=== PATIENT | female | born 1995 ===

== ENCOUNTER 2025-07-23 09:52 | Outpatient (REF) | payer MEDICAID, SELFPAY ==
--- NOTE | ~2025-07-23 | US_ITS ---
EXAMINATION: US HEAD NECK SOFT TISSUE HISTORY: right side of neck, firm subcutaneous nodule, tender COMPARISON: There are no prior studies available for comparison. FINDINGS: Sonographic examination of a palpable abnormality in the right neck was performed. There is a 9 x 5 x 9 mm hypoechoic solid mass in the subcutaneous tissues. This does not represent a normal appearing lymph node. US/US soft tiss head and/or neck IMPRESSION: 9 x 5 x 9 mm hypoechoic solid mass in the subcutaneous soft tissues. This is likely amenable to ultrasound-guided biopsy. Electronically signed by: Jeff Barron MD 07/25/2025 08:47 AM EDT
--- OUTSIDE RECORDS SUMMARY | 2025-07-23 09:54 | XMS_ITS | Clinical Summary ---
Author Organization [employer] Address [address] [facility] [address] [place] [address] Care Team Providers Care Cat Wagon Operator Name Role Phone Kim Harp MD Primary Care Provider [phone] Allergies No known active allergies Medications * This document contains information received from the source organization and may not represent a complete record from that organization. Pyridoxine HCl 10 MG tabletIndicatio ns:Positive test Take 1 tablet (10 mg) by mouth every 6 (six) hours if needed (nausea). 90 tablet 1 4 Active Additional Information Patient not taking.Reported on 05/31/2025 Vit-Fe Ldg-EP-Lkpuo (PNV Plus Multivit+DHA) 27-1 & 312 MG misc Take 1 tablet by mouth Once per day. 90 each 3 5 Active acetaminophen 500 MG capsule Take 1 capsule (500 mg) by mouth every 6 (six) hours if needed for mild pain or headaches. 60 capsule 1 5 Active Additional Information Patient not taking.Reported on 05/31/2025 Active Problems Problem Noted Date Diagnosed Date Subcutaneous mass of neck 07/15/2025 Major depressive disorder, s hossein episode with peripartum onset 06/27/2025 RUPERTO (generalized anxiety disorder) 06/27/2025 PTSD (post-traumatic stress disorder) 06/27/2025 14 weeks gestation of 12/19/2024 Assessment & Plan (12/19/2024 8:02 PM EST): Reviewed warning signs to go to ER, bleeding or loss of fluid Take PNV daily Avoid teratogens Encounters * This document contains information received from the source organization and may not represent a complete record from that organization. Date Type Department Care Team Description 07/19/2025 Patient Outreach [address] [address] Kim Harp MD 07/15/2025 11:15 AM EDT Office Visit [address] [address] Amita Lei, STEVE Subcutaneous mass of neck (Primary Dx) 07/15/2025 Patient Outreach [address] [address] Kim Harp MD Care Coordination ([facility] Cyndi Brown TC#2- SDOH follow up call-LVM) 07/15/2025 Travel 07/13/[address] [address] Kim Harp MD Telephone Call 07/08/2025 Patient Outreach [address] [address] Kim Harp MD Care Management ([facility] follow up call) 07/08/2025 Patient Outreach [address] [address] Kim Harp MD 06/30/2025 Patient Outreach [address] [phone] Kim Harp MD Care Coordination ([facility] Cyndi Brown TC#1-Follow up-LVM) 06/27/2025 Travel 06/22/2025 Travel 06/22/2025 Patient Outreach [address] [phone] Kim Harp MD Care Management ([facility] TC #1-lvm) 06/20/2025 Patient Outreach [address] [phone] Kim Harp MD 06/20/2025 Patient Outreach [facility] [address] [place] [address] Kim Harp MD Transition Of Care (Tcm) (HDF usncheduled. ) 06/17/2025 Patient Outreach [address] [address] Kim Harp MD 06/16/2025 Patient Outreach [address] [address] Kim Harp MD Care Coordination ([facility]/ALAN Brown, In person Facility Visit-Car seat drop off) 06/15/2025 Patient Outreach [address] [address] Kim Harp MD Care Coordination ([facility]/ALAN Brown, TC-Facility call) 06/15/2025 Patient Outreach [address] [address] Kim Harp MD 06/13/2025 Patient Outreach [address] [address] Kim Harp MD Care Coordination ([facility]ALAN Brown TC- Car seat update/Follow up) 06/13/2025 Patient Outreach [address] [address] Kim Harp MD Care Management (C3 follow up call) 05/31/2025 Plan of Care Documentation [address] [address] 05/31/2025 Patient Outreach [address] [address] Kim Harp MD Care Management (C3 initial assessment/enrollment ) 05/30/2025 Patient Outreach [address] [address] Kim Harp MD Care Coordination ([facility]/ESTEFANY Macdonald-[place] Appt Reminder) 05/27/2025 Patient Outreach [address] [address] Kim Harp MD Care Coordination ([facility]/ALAN Brown TC- Rescheduled [place] appt) 05/18/2025 Patient Outreach [address] [address] Kim Harp MD Care Coordination ([facility]/ESTEFANY Macdonald-R/S HR Maternity [place] appt) 05/17/2025 3:20 PM EDT Office Visit [facility] [address] [place] [address] Iman Davis MD Acute streptococcal pharyngitis (Primary Dx); Nodule of skin of neck 05/17/2025 Travel 05/17/2025 Patient Outreach [facility] [address] [place] [address] Kim Harp MD Care Coordination ([facility]/ESTEFANY Macdonald-HRMaternity [place] Appt reminder) 05/16/2025 Patient Outreach [address] [address] Kim Harp MD Care Coordination ([facility]/ESTEFANY Macdonald#4- Attempt to R/S missed [place]-Agrees to participate) from Last 3 Months Social History Tobacco Use Types Packs/Day Years Used Date Smoking Tobacco: Never Smokeless Tobacco: Never Tobacco Cessation:Counseling Given: Not Answered Alcohol Use Standard Drinks/Week Comments Never 0 (1 standard drink = 0.6 oz pur e alcohol) Depression Answer Date Recorded Patient Health Questionnaire-9 Score 7 07/12/2025 Patient Health Questionnaire-9 Score 7 07/12/2025 Last PHQ-9: Questionnaire Data Not on file 0 07/12/2025 Housing Stability Answer Date Recorded What is your housing situation today? I do not have housing (Staying with others, in a hotel, in a long-term, living outside on the street, on a beach, in a car, or in a park 01/27/[address] you li ve. Do you have problems with any of the following? None of the above 01/27/2025 Food Insecurity Answer Date Recorded Within the past 12 months, y ou worried that your food would run out before you got money to buy more: Sometimes True 2024 Within the past 12 months,th e food you bought just didn't last and you didn't have enough money to get more: Sometimes True 01/27/2025 Transportation Answer Date Recorded In the past 12 months, has l ack of transportation kept you from medical appts, meetings, work or from getting things needed for daily living? Yes, it has kept me from medical appointments or getting medications. 01/27/2025 Utilities Answer Date Recorded In the past 12 months, has t he electric, gas, oil or water company threatened to shut off services in your home? No 01/27/2025 Depression Answer Date Recorded Patient Health Questionnaire-2 Score 2 07/12/2025 Internet Access Answer Date Recorded Internet Access Q1 Yes 01/27/2025 Internet Access Q2 Not on file 01/27/2025 Comments No Sex and Gender Information Value Date Recorded Sex Assigned at Female 11/08/2024 8:40 AM EST Legal Sex Female 11:42 AM EDT Gender Identity Female 11/08/2024 8:40 AM EST Sexual Orientation Choose not to disclose 2023 8:40 AM EST Last Filed Vital Signs Vital Sign Reading Time Taken Comments Blood Pressure 100/72 07/15/2025 10:47 AM EDT Pulse 72 07/15/2025 10:47 AM EDT Temperature 36.7 C (98.1 F) 07/15/2025 10:47 AM EDT Respiratory Rate 18 07/15/2025 10:47 AM EDT Oxygen Saturation 98% 07/15/2025 10:47 AM EDT Inhaled Oxygen Concentration - - Weight 61.5 kg (135 lb 8 oz) 07/15/2025 10:47 AM EDT Height 152.4 cm (5') 07/15/2025 10:47 AM EDT Body Mass Index 26.46 07/15/2025 10:47 AM EDT Plan of Treatment Health Maintenance Due Date Last Done Comments HIV Screening 1994 Disability Screening 1994 Family Planning (PISQ) 2009 HPV Vaccines (1 - 3-dose series) 2009 Hepatitis C Screening 2012 DTaP/Tdap/Td Vaccines (1 - Tdap) 2013 Hepatitis B Vaccines (1 of 3 - 19+ 3-dose series) 2013 Pap Smear 2015 Cervical Cancer Screening 2024 HPV/Cotest 2024 COVID-19 Vaccine ( - 2023-2 5 season) 2025 Influenza Vaccine (#1) 2025 Tobacco Screening 12/17/2025 12/17/2024 SDOH Screening 01/27/2026 01/27/2025 Alcohol/Substance Use Screening 05/31/2026 05/31/2025 Depression Screening 07/12/2026 07/12/2025, 07/12/2025 Zoster Vaccines (1 of 2) 2044 RSV Patients and Patients Aged 60 years or older (1 - 1-dose 75+ series) 2069 HIB Vaccines Aged Out No longer eligi ble based on patient's age to complete this topic Hepatitis A Vaccines Aged Out No long er eligible based on patient's age to complete this topic IPV Vaccines Aged Out No longer eligi ble based on patient's age to complete this topic Meningococcal B Vaccine Aged Out No l onger eligible based on patient's age to complete this topic Meningococcal Vaccine Aged Out No analilia kasandra eligible based on patient's age to complete this topic Pneumococcal Vaccine: Pediatrics (0 to 5 Years) and At-Risk Patients (6 to 49) Years Aged Out No longer eligible b ased on patient's age to complete this topic RSV under 20 months Aged Out No longe r eligible based on patient's age to complete this topic Rotavirus Vaccines Aged Out No longer eligible based on patient's age to complete this topic Procedures Procedure Name Priority Date/Time Associated Diagnosis Comments POCT RAPID STREP A Routine 05/17/2025 4: 21 PM EDT Acute streptococcal pharyngitis from Last 3 Months Results * (ABNORMAL) POCT rapid strep A manually resulted (05/17/2025 4:21 PM EDT) [facility] Rapid Strep A Screen Positive( A) Negative, None Detected Swab 05/17/2025 4:21 PM EDT Iman Davis MD POINT OF CARE TEST ENTER/EDIT ORDERABLES Final Result from Last 3 Months Insurance HSN FULL [facility] STANDARD Care Teams Cat Wagon Operator Relationship Specialty Start Date End Date Kim Harp MD [address] [place] [id number] PCP - General Family Medicine 12/17/24
--- OUTSIDE RECORDS SUMMARY | 2025-07-23 09:54 | XMS_ITS ---
Author Organization [employer] [facility] Address [address] [facility] 7t [place] [address] Care Team Providers Care Photographer Finish Name Role Phone Kim Harp MD Primary Care Provider [phone] CM High Risk Maternity Status:Enrolled (Active) Start date:01/27/2025 Enrollment date:05/31/2025 Enrollment reason:Risk Strat Overview HRM- Risk Strat Case Team Name Relationship Phone Eda Edwards(Responsible Staff) Registered Nurse [phone] Continued Care and Services Coordination
--- OUTSIDE RECORDS SUMMARY | 2025-07-23 09:54 | XMS_ITS ---
Author Organization [employer] [facility] Address [address] [facility] 7[address] [place] [address] Care Team Providers Care University Internship Name Role Phone Kim Harp MD Primary Care Provider [phone] [phone] CM Maternal Advocate Status:Enrolled (Active) Start date:01/27/2025 Enrollment date:05/31/2025 Enrollment reason:Risk Strat Case Team Name Relationship Phone Cyndi Brown(Responsible Staff) [phone] Continued Care and Services Coordination
--- OUTSIDE RECORDS SUMMARY | 2025-07-23 09:55 | XMS_ITS | Encounter Summary ---
Author Organization [employer] Address [address] [place] [address] Care Team Providers Care Adult Protective Caseworker Name Role Phone Kim Harp MD Primary Care Provider [phone] Encounter Details Date Type Department Care Team ([facility] st Contact Info) Description 07/19/2025 Patient Outreach [facility] [address] [place] [address] Kim Harp MD [address] [place] [address] Social History Tobacco Use Types Packs/Day Years Used Date Smoking Tobacco: Never Smokeless Tobacco: Never Alcohol Use Standard Drinks/Week Comments Never 0 [...] with others, in a hotel, in a custodial, living outside on the street, on a [...] Access Q2 Not on file 01/27/2025 Comments Yes Sex and Gender Information Value Date Recorded Sex Assigned at Female 11/08/2024 8:40 AM EST Legal Sex Female 11:42 AM EDT Gender Identity Female 11/08/2024 8:40 AM EST Sexual Orientation Choose not to disclose 2023 8:40 AM EST documented as of this encounter Plan of Treatment Not on file documented as of this encounter Visit Diagnoses Not on filedocumented in this encounter Additional Health Concerns Assessment Noted Time PHQ-9 Depression Total Score: 7 07/12/20 1:32 PM EDT documented as of this encounter Care Teams Adult Protective Caseworker Relationship Specialty Start Date End Date Kim Harp MD [address] [place] [address] PCP - General Family Medicine 12/17/24 documented as of this encounter
== END 2025-07-23 09:53 | disposition home or self-care (01) ==
LOC: HO.US 09:52
PROVIDERS: PCP General Practice; Visit Provider Nurse Practitioner Family
DX: R22.1 Localized swelling, mass and lump, neck (principal)
CPT/HCPCS: 76536

== ENCOUNTER → 2025-07-23 09:56 | Outpatient (BNV) | payer MEDICAID, SELFPAY | PROVIDERS: PCP General Practice; Visit Provider Radiology Diagnostic Radiology | DX: R22.1 Localized swelling, mass and lump, neck (principal) | CPT/HCPCS: 76536 ==

== ENCOUNTER 2025-08-29 09:22 | Outpatient (AMB) | payer MEDICAID, SELFPAY ==
--- NOTE | 2025-08-29 09:28 | A.OFFVIS_ITS ---
Vital Signs 3 08/29/25 09:35 Height 4 ft 11 in Weight 135 lb BMI 27.3 BP 106/54 L Blood Pressure Location Lt brachial Position Sitting Pulse 80 Intake Visit Reasons: subcutaneous mass (R) lateral neck Intake Note: Patient is seen in office for evaluation of a mass of the right neck. Pt c/o: onset 6 months ago, was on abx few weeks ago due to infection and fever, denies discharge, admits to redness, pain, hard lump Staff Radiation Therapist Required: Yes Staff Radiation Therapist Language: Director Of Optimization Services: Staff Radiation Therapist Present Staff Radiation Therapist Name: Vika COOK Information Interpreted: non-clinical & clinical Business Center Representative: Business Center Representative Present Accompanied by: Self / Same As Patient Allergies No Known Allergies Allergy (Verified 08/29/25 09:35) Medication List - Last Reconciled 08/29/25 by Ramon Shah MD No Known Home Meds HPI Comments Details: 29-year-old female patient presenting with complaints of a right neck mass. The neck mass has been there for approximately 6 months in his gradually increased in size. She does report pain to the touch as well as fevers especially when not taking ibuprofen. She reports pain also within her mouth especially when eating which he feels may be associated with the neck mass. She is approximately 2 months . She denies any anorexia or weight loss but does report fever without chills. She denies a previous biopsy of this lesion. Ultrasound revealed a 9 x 5 x 9 mm hypoechoic solid mass in the subcutaneous tissue which did not appear to be a normal-appearing lymph node. Patient has requested excision of this lesion. [facility] Surgical History History of 3 sections Social History Alcohol intake: never Patient Tobacco Use Status: Never used Tobacco Review of Systems Const All systems reviewed & are unremarkable except as noted in HPI and below Physical Exam Const General: cooperative and no acute distress Nutritional Appearance: well nourished Orientation/consciousness: patient oriented x3 Limitations: no limitations HEENT Head: Yes normocephalic and Yes atraumatic Ears: hearing grossly normal bilaterally Neck Neck images: 2 1. 1.5 cm round subcutaneous mass mobile within the subcutaneous tissue with no fixation to the skin. Lesion seems to superficial to be a lymph node but deeper then would be expected for a sebaceous cyst. Lesion is tender to palpation. No skin redness or fluctuance is identified. Resp Effort & Inspection: normal respiratory effort, no audible wheezes, no cough and no respiratory distress Cardio Jugular venous distension: no JVD GI Inspection: Yes normal to inspection Skin Other: Warm, dry, no rash Neuro General: patient oriented x3 Extrem General: Yes no clubbing, cyanosis or edema Assessment & Plan Assessment & Plan (1) Solitary mass of neck with fever: Code(s): R22.1 - Localized swelling, mass and lump, neck; R50.9 - Fever, unspecified Category: Medical Plan 29-year-old female patient presenting with a right-sided neck mass measuring approximately 1.5 cm in diameter. This has been present for approximately 6 months in his gradually increased in size and causing discomfort. The lump seems to be associated with fevers as well. I recommended an excision of this palpable mass under local anesthesia and after discussion of the procedure, risks, and alternatives, she consents to the surgery. This will be performed under local anesthesia as an office based procedure. She expressed understanding and agrees with the plan. Coding Level of Care Code New Pt Level 4 (38934) Diagnoses Solitary mass of neck with fever R22.1; R50.9
[2025-08-29 09:35] VITALS: BP 106/54; PULSE 80; BMI 27.3
--- OUTSIDE RECORDS SUMMARY | 2025-08-29 10:30 | XMS_ITS ---
Author Organization [employer] [facility] Address [address] [facility] [address] [place] [address] Care Team Providers Care Etymology Teacher Name Role Phone Kim Harp MD Primary Care Provider [phone] C3 CM Maternal Advocate Status:Enrolled (Active) Start date:01/27/2025 Enrollment date:05/31/2025 Enrollment reason:Risk Strat Case Team Name Relationship Phone Cyndi Brown(Responsible Staff) [phone] Continued Care and Services Coordination
--- OUTSIDE RECORDS SUMMARY | 2025-08-29 10:30 | XMS_ITS ---
Author Organization [employer] [facility] Address [address] [facility] [address] [place] [address] Care Team Providers Care Astrochemist Name Role Phone Kim Harp MD Primary Care Provider [phone] CM High Risk Maternity Status:Enrolled (Active) Start date:01/27/2025 Enrollment date:05/31/2025 Enrollment reason:Risk Strat Overview HRM- Risk Strat Case Team Name Relationship Phone Eda Edwards(Responsible Staff) Registered Nurse [phone] Continued Care and Services Coordination
--- OUTSIDE RECORDS SUMMARY | 2025-08-29 10:30 | XMS_ITS | Encounter Summary ---
Author Organization [employer] Address [address] [facility] [place] [address] Care Team Providers Care Director Talent Management Name Role Phone Kim Harp MD Primary Care Provider [phone] Encounter Details Date Type Department Care Team ([facility] st Contact Info) Description 08/25/2025 Patient Outreach [facility] [address] [place] [address] Kim Harp MD [address] [place] [address] Social History Tobacco Use Types Packs/Day Years Used Date Smoking Tobacco: Never Smokeless Tobacco: Never Alcohol Use Standard Drinks/Week Comments Never 0 (1 standard drink = 0.6 oz pur e alcohol) Depression Answer Date Recorded Patient Health Questionnaire-9 Score 9 07/25/2025 Patient Health Questionnaire-9 Score 9 07/25/2025 Last PHQ-9: Questionnaire Data Not on file 0 07/25/2025 Housing Stability Answer Date Recorded What is your housing situation today? I do not have housing (Staying with others, in a hotel, in a fci, living outside on the street, on a [...] Date Recorded Patient Health Questionnaire-2 Score 2 07/25/2025 Internet Access Answer Date Recorded Internet Access [...] as of this encounter Plan of Treatment Upcoming Encounters Date Type Department Care Team (Late st Contact Info) Description 10/11/2025 11:00 AM EST Office Visit [facility] [address] [place] [address] Kim Harp MD [address] [place] [address] documented as of this encounter Visit Diagnoses Not on filedocumented in this encounter Additional Health Concerns Assessment Noted Time PHQ-9 Depression Total Score: 9 07/25/20 3:41 PM EDT documented as of this encounter Care Teams Director Talent Management Relationship Specialty Start Date End Date Kim Harp MD [address] [place] [address] PCP - General Family Medicine 12/17/24 documented as of this encounter
--- OUTSIDE RECORDS SUMMARY | 2025-08-29 10:30 | XMS_ITS | Clinical Summary ---
Author Organization [employer] Address [address] [facility] [address] [place] [address] Care Team Providers Care Creative Services Designer Name Role Phone Kim Harp MD Primary Care Provider [phone] Allergies No known active allergies Medications * This document contains information received from the source organization and may not represent a complete record from that organization. Pyridoxine HCl 10 MG tabletIndicatio ns:Positive test Take 1 tablet (10 mg) by mouth every 6 (six) hours if needed (nausea). 90 tablet 1 4 Active Additional Information Patient not taking.Reported on 05/31/2025 Vit-Fe Vfe-DH-Kqjze (PNV Plus Multivit+DHA) 27-1 & 312 MG [...] organization. Date Type Department Care Team Description 08/25/2025 Patient Outreach [address] [address] Kim Harp MD 08/17/2025 Patient Outreach [address] [address] Kim Harp MD Care Coordination (C3LEMUEL/ESTEFANY Macdonald- Follow up call) 08/17/2025 Patient Outreach [address] [address] Kim Harp MD Care Management (C3CM follow up call) 08/16/2025 Patient Outreach [address] [address] Kim Harp MD 08/01/2025 Patient Outreach [address] [address] Kim Harp MD Care Coordination (OSORIO/ESTEFANY Macdonald- Follow up call) 07/27/2025 Results Follow-Up [address] [address] Angeles Weston, JAY JAY Head Neck Soft Tissue 07/23/2025 Orders Only [address] [address] Amita Lei NP Mass in neck (Primary Dx) 07/19/2025 Patient Outreach [address] [address] Kim Harp MD 07/15/2025 11:15 AM EDT Office Visit [address] [address] Amita Lei NP Subcutaneous mass of neck (Primary Dx) 07/15/2025 Patient Outreach [address] [address] Kim Harp MD Care Coordination ([facility]EL/ESTEFANY Macdonald#2- SDOH follow up call-LVM) 07/15/2025 Travel 07/13/[address] [address] Kim Harp MD Telephone Call 07/08/2025 Patient Outreach [address] [address] Kim Harp MD Care Management ([facility] follow up call) 07/08/2025 Patient Outreach [address] [address] Kim Harp MD 06/30/2025 Patient Outreach [address] [address] Kim Harp MD Care Coordination ([facility]/Alma Brown TC#1-Follow up-LVM) 06/27/2025 Travel 06/22/2025 Travel 06/22/2025 Patient Outreach [address] [address] Kim Harp MD Care Management ([facility] TC #1-lvm) 06/20/2025 Patient Outreach [address] [address] Kim Harp MD 06/20/2025 Patient Outreach [facility] [address] [place] [address] Kim Harp MD Transition Of Care (Tcm) (F usncheduled. ) 06/17/2025 Patient Outreach [address] [address] Kim Harp MD 06/16/2025 Patient Outreach [address] [address] Kim Harp MD Care Coordination ([facility]/ALAN Brown In person Facility Visit-Car seat drop off) 06/15/2025 Patient Outreach [address] [address] Kim Harp MD Care Coordination ([facility]/ESTEFANY Macdonald-Facility call) 06/15/2025 Patient Outreach [address] [address] Kim Harp MD 06/13/2025 Patient Outreach [address] [address] Kim Harp MD Care Coordination ([facility]/ESTEFANY Strange- Car seat update/Follow up) 06/13/2025 Patient Outreach [address] [address] Kim Harp MD Care Management ([facility] follow up call) 05/31/2025 Plan of Care Documentation [address] [address] 05/31/2025 Patient Outreach [address] [address] Kim Harp MD Care Management ([facility] initial assessment/enrollmen t) 05/30/2025 Patient Outreach [address] [address] Kim Harp MD Care Coordination ([facility]/ESTEFANY Strange-[place] Appt Reminder) from Last 3 Months Social History Tobacco [...] with others, in a hotel, in a penitentiary, living outside on the street, on a [...] 07/15/2025 10:47 AM EDT Plan of Treatment Upcoming Encounters Date Type Department Care Team (Late st Contact Info) Description 10/11/2025 11:00 AM EST Office Visit [facility] [address] [place] [address] Kim Harp MD [address] [place] [address] Health Maintenance Due Date Last Done Comments HIV Screening 1994 Disability Screening 1994 Family Planning (PISQ) 2009 HPV Vaccines (1 - 3-dose series) 2009 Hepatitis C Screening 2012 DTaP/Tdap/Td Vaccines (1 - Tdap) 2013 Hepatitis B Vaccines (1 of 3 - 19+ 3-dose series) 2013 Pap Smear 2015 Cervical Cancer Screening 2024 HPV/Cotest 2024 COVID-19 Vaccine (1 - 2023-2 5 season) 2025 Influenza Vaccine (#1) 2025 Tobacco Screening 12/17/2025 12/17/2024 Depression Monitoring 01/22/2026 07/25/2025 , 07/25/2025 SDOH Screening 01/27/2026 01/27/2025 Alcohol/Substance Use Screening 05/31/2026 05/31/2025 Zoster Vaccines (1 of 2) 2044 RSV [...] Procedure Name Priority Date/Time Associated Diagnosis Comments US HEAD NECK SOFT TISSUE Routine 07/23/2025 9:56 AM EDT from Last 3 Months Results * US Head Neck Soft Tissue (07/23/2025 9:56 AM EDT) Anatomical Region Laterality Modality Head, Neck Ultrasound 07/23/2025 9:56 AM EDT Narrative 07/25/2025 8:50 AM EDT [address] [address] Ultrasound Report Signed Patient: Kristal Mccabe MR#: [id number] : 1995 Acct:[id number] Age/Sex: 29 / F ADM Date: 07/23/25 Loc: HO.US Attending Dr: Amita Lei NP Ordering Physician: Amita Lei NP Date of Service: 07/23/25 Procedure(s): US soft tiss head and/or neck Accession Number(s): [id number] cc: Amita Lei PARTS PRODUCT ANALYST; Kim Harp Reason for Exam: right side of neck, firm subcutaneous nodule, tender EXAMINATION: US HEAD NECK SOFT TISSUE HISTORY: right side of neck, firm subcutaneous nodule, tender COMPARISON: There are no prior studies available for comparison. FINDINGS: Sonographic examination of a palpable abnormality in the right neck was performed. There is a 9 x 5 x 9 mm hypoechoic solid mass in the subcutaneous tissues. This does not represent a normal appearing lymph node. US/US soft tiss head and/or neck IMPRESSION: 9 x 5 x 9 mm hypoechoic solid mass in the subcutaneous soft tissues. This is likely amenable to ultrasound-guided biopsy. Electronically signed by: Jeff Barron MD 07/25/2025 08:47 AM EDT Dictated By: Jeff Barron MD Signed By: <Electronically signed by Jeff Barron MD in OV> 07/25/25 0847 DD/ 0956 TD/TT: 07/23/25 0959 Expansion Envelope Maker Hand: Procedure Note Donotuseinterpreter, Image - 07/25/[address] [address] Ultrasound Report Signed Patient: Kristal Mccabe MR#: [id number] : 1995Acct:[id number] Age/Sex: 29 / FADM Date: 07/23/25 Loc: HO.US Attending Dr: Amita Lei NP Ordering Physician: Amita Lei NP Date of Service: 07/23/25 Procedure(s): US soft tiss head and/or neck Accession Number(s): [id number] cc: Amita Lei PARTS PRODUCT ANALYST; Kim Harp Reason for Exam: right side of neck, firm subcutaneous nodule, tender EXAMINATION: US HEAD NECK SOFT TISSUE HISTORY: right side of neck, firm subcutaneous nodule, tender COMPARISON: There are no prior studies available for comparison. FINDINGS: Sonographic examination of a palpable abnormality in the right neck was performed. There is a 9 x 5 x 9 mm hypoechoic solid mass in the subcutaneous tissues. This does not represent a normal appearing lymph node. US/US soft tiss head and/or neck IMPRESSION: 9 x 5 x 9 mm hypoechoic solid mass in the subcutaneous soft tissues. This is likely amenable to ultrasound-guided biopsy. Electronically signed by: Jeff Barron MD 07/25/2025 08:47 AM EDT RP Dictated By: Jeff Barron MD Signed By: <Electronically signed by Jeff Barron MD in OV> 07/25/25 0847 DD/ TD/TT: 07/23/2559 Expansion Envelope Maker Hand: us Amita Lei NP IMG US PROCEDURES Edited Result - Final from Last 3 Months Insurance [employer] [facility] [facility] Care Teams Creative Services Designer Relationship Specialty Start Date End Date Kim Harp MD [address] [place] [address] PCP - General Family Medicine 12/17/24
== END 2025-08-29 09:42 | disposition home or self-care (01) ==
LOC: HO.HGS 09:23
PROVIDERS: PCP General Practice; Visit Provider Surgery
DX: R22.1 Localized swelling, mass and lump, neck (principal); R50.9 Fever, unspecified
CPT/HCPCS: 99204

== ENCOUNTER → 2025-08-29 09:22 | Outpatient (BNVA) | payer MEDICAID, SELFPAY | PROVIDERS: PCP General Practice; Visit Provider Surgery | DX: Z01.818 Encounter for other preprocedural examination (principal); R22.1 Localized swelling, mass and lump, neck; R50.9 Fever, unspecified | CPT/HCPCS: 99202 ==

== ENCOUNTER 2025-10-11 16:13 | Outpatient (REF) | payer MEDICAID, SELFPAY ==
--- OUTSIDE RECORDS SUMMARY | 2025-10-11 11:00 | XMS_ITS | Encounter Summary ---
Author Organization [employer] Address [address] [facility] 7t [place] [address] Care Team Providers Care Plumber'S Assistant Name Role Phone Kim Harp MD Primary Care Provider [phone] Reason for Referral * Consultation (Routine) - Closed Specialty Diagnoses / Procedures Referred By Contac t Referred To Contact Optometry Diagnoses Blurry vision Kim Harp MD [address] [place] [address] Phone: tel: fax: Referral ID Status Reason Start Date Expiration Date V isits Requested Visits Authorized [id number] Closed Specialty Services Required 10/11/2025 10/11/2026 1 1 Reason for Visit * Reason Comments Follow-up Encounter Details Date Type Department Care Team ([facility] st Contact Info) Description 10/11/2025 11:00 AM EST Office Visit [facility] [address] [place] [address] Kim Harp MD [address] [place] [phone] Iron deficiency anemia due to chronic blood loss (Primary Dx); Dietary counseling; Exercise counseling; Blurry vision; Vaginal discharge Social History Tobacco Use Types Packs/Day Years [...] with others, in a hotel, in a group home, living outside on the street, on a [...] AM EST documented as of this encounter Last Filed Vital Signs Vital Sign Reading Time Taken Comments Blood Pressure 102/60 10/11/2025 10:54 AM EST Pulse 89 10/11/2025 10:54 AM EST Temperature 36 C (96.8 F) 10/11/2025 10:54 AM EST Respiratory Rate 20 10/11/2025 10:54 AM EST Oxygen Saturation 98% 10/11/2025 10:54 AM EST Inhaled Oxygen Concentration - - Weight 64.2 kg (141 lb 9.6 oz) 10/11/2025 10:54 AM EST Height 152.4 cm (5') 10/11/2025 10:54 AM EST Body Mass Index 27.65 10/11/2025 10:54 AM EST documented in this encounter Plan of Treatment Scheduled Orders Name Type Priority Associated Diagnoses Orde r Schedule Ferritin Lab Routine Iron deficiency anemia due to chronic blood loss Expected: 10/11/2025, Expires: 10/11/2026 Iron And Total Iron Binding Capacity Lab Routine Iron deficiency anemia due to chronic blood loss Expected: 10/11/2025, Expires: 10/11/2026 Chlamydia/N. Gonorrhoeae RNA, TMA, Vaginal Microbiology Routine Vaginal discharge Ordered: 10/11/2025 Bacterial Vaginosis Panel Microbiology Routine Vaginal discharge Ordered: 10/11/2025 Scheduled Referrals Name Type Priority Associated Diagnoses Orde r Schedule Referral to Optometry Outpatient Referral Routine Blurry vision Expected: 10/11/2025 (Approximate), Expires: 10/11/2026 documented as of this encounter Procedures Procedure Name Priority Date/Time Associated Diagnosis Comments POCT HEMOGLOBIN Routine 10/11/2025 11:39 AM EST Iron deficiency anemia due to chronic blood loss documented in this encounter Results * POCT Hemoglobin (10/11/2025 11:39 AM EST) Hemoglobin 12.0 12.0 - 15.0 QC Media Lot # [id number] Lot# Expiration Date 42,427 Blood 10/11/2025 11:3 9 AM EST Kim Harp MD POINT OF CARE TEST ENTER/EDIT ORDERABLES Final Result documented in this encounter Visit Diagnoses Diagnosis Iron deficiency anemia due to chronic blood loss- Primary Iron deficiency anemia secondary to blood loss (chronic) Dietary counseling Dietary surveillance and counseling Exercise counseling Blurry vision Other specified visual disturbances Vaginal discharge Leukorrhea, not specified as infective documented in this encounter Additional Health Concerns Assessment Noted Time PHQ-9 Depression Total Score: 9 07/25/20 25 3:41 PM EDT documented as of this encounter Care Teams Plumber'S Assistant Relationship Specialty Start Date End Date Kim Harp MD [address] [place] [address] PCP - General Family Medicine 12/17/24 documented as of this encounter
--- OUTSIDE RECORDS SUMMARY | 2025-10-11 17:16 | XMS_ITS ---
Author Organization [employer] Address [address] [facility] 7t [place] [address] Care Team Providers Care Assistant Real Estate Manager Name Role Phone Kim Harp MD Primary Care Provider [phone] C3 CM High Risk Maternity Status:Enrolled (Active) Start date:01/27/2025 Enrollment date:05/31/2025 Enrollment reason:Risk Strat Overview HRM- Risk Strat Case Team Name Relationship Phone Eda Alvarez(Responsible Staff) Registered Nurse [phone] Continued Care and Services Coordination
--- OUTSIDE RECORDS SUMMARY | 2025-10-11 17:16 | XMS_ITS ---
Author Organization [employer] Address [address] [facility] 7t [place] [address] Care Team Providers Care Drill Doctor Name Role Phone Kim Harp MD Primary Care Provider [phone] C3 CM Maternal Advocate Status:Enrolled (Active) Start date:01/27/2025 Enrollment date:05/31/2025 Enrollment reason:Risk Strat Case Team Name Relationship Phone Cyndi Brown(Responsible Staff) [phone] Continued Care and Services Coordination
--- OUTSIDE RECORDS SUMMARY | 2025-10-11 17:17 | XMS_ITS | Encounter Summary ---
Author Organization [employer] Address [address] 7[address] [place] [address] Care Team Providers Care Water Quality Specialist Name Role Phone Kim Harp MD Primary Care Provider Encounter Details Date Type Department Care Team (Latest Contact Info) Description 10/11/2025 Travel Social History Tobacco Use Types Packs/Day Years [...] with others, in a hotel, in a alf, living outside on the street, on a [...] documented as of this encounter Care Teams Water Quality Specialist Relationship Specialty Start Date End Date Kim Harp MD [address] [place] [id number] PCP - General Family Medicine 12/17/24 documented as of this encounter
--- OUTSIDE RECORDS SUMMARY | 2025-10-11 17:17 | XMS_ITS | Clinical Summary ---
Author Organization [employer] Address [address] [facility] 7t [place] [address] Care Team Providers Care Freelance Displayer Name Role Phone Kim Harp MD Primary Care Provider [phone] Allergies No known active allergies Medications * This document contains information received from the source organization and may not represent a complete record from that organization. Pyridoxine HCl 10 MG tabletIndicat ions:Positive test Take 1 tablet (10 mg) by mouth every 6 (six) hours if needed (nausea). 90 tablet 1 11/08/20 24 Active Additional Information Patient not taking.Reported on 05/31/2025 Vit-Fe Svc-JH-Cxgff (PNV Plus Multivit+DHA) 27-1 & 312 MG misc Take 1 tablet by mouth Once per day. 90 each 3 12/17/19 25 Active ibuprofen 600 MG tablet Take 1 tablet by mouth every 6 (six) hours. 07/08/20 25 Active GaviLAX 17 GM/SCOOP powder TAKE 17 GM MIXED IN 8 OUNCES OF WATER, COFFEE OR TEA ONCE DAILY FOR 10 DAYS 06/17/20 25 Active Gas Relief 80 MG chewable tablet CHEW 1 TABLET THREE TIMES DAILY AFTER MEALS AND AT BEDTIME FOR 7 DAYS 06/17/20 25 Active acetaminophen (Tylenol) 325 MG tablet TAKE 3 TABLETS BY MOUTH EVERY 6 HOURS NEEDED FOR PAIN 07/08/20 25 Active senna (Senokot) 8.6 MG tablet Take 1 tablet (8.6 mg) by mouth at bedtime. 90 tablet 3 5 2:20 PM EST 10/11/20 25 Active Ferrous Fumarate 324 (106 Fe) MG tablet Take 1 tablet by mouth Once per day. 90 tablet 3 2:20 PM EST 10/11/20 Active acetaminophen 500 MG capsule Take 1 capsule (500 mg) by mouth every 6 (six) hours if needed for mild pain or headaches. 60 capsule 1 12/17/19 25 025 Discontinued(T herapy completed) Ferrous Fumarate 324 (106 Fe) MG tablet THADDEUS 1 TABLETA POR LA BOCA CADA LISSETTE. 02/29/20 025 Discontinued(R eorder (will not trigger notification to Pharmacy)) oxyCODONE (Roxicodone) 5 MG immediate release tablet Take 1 tablet by mouth every 6 (six) hours if needed for pain. 06/17/20 025 Discontinued(T herapy completed) senna (Senokot) 8.6 MG tablet TAKE 2 TABLETS BY MOUTH AT BEDTIME FOR 7 DAYS NEEDED FOR CONSTIPATION 06/17/20 025 Discontinued(R eorder (will not trigger notification to Pharmacy)) Active Problems Problem Noted Date Diagnosed Date [...] organization. Date Type Department Care Team Description 10/11/2025 11:00 AM EST Office Visit [address] [address] Kim Harp MD Iron deficiency anemia due to chronic blood loss (Primary Dx); Dietary counseling; Exercise counseling; Blurry vision; Vaginal discharge 10/11/2025 Travel 10/10/[address] [address] Kim Harp MD Chart Prep 10/05/2025 Patient Outreach [address] [address] Kim Harp MD Care Coordination (C3CM/ALAN Brown TC- Follow up) 09/16/2025 Patient Outreach [address] [address] Kim Harp MD Care Coordination (C3CM/SAMYW Cyndi Brown TC-Care Coordination/Assistan ce with [facility] OPERATIONS INTELLIGENCE OFFICER appt) 09/16/2025 Patient Outreach [address] [address] Kim Harp MD Care Management (C3CM follow up call) 09/13/2025 Patient Outreach [address] [address] Kim Harp MD Care Coordination (C3CM/ALAN Brown TC#1- Follow up-LVM) 09/01/2025 Patient Outreach [address] [address] Kim Harp MD Care Coordination (C3CM/ALAN Brown TC- Follow up call) 08/25/2025 Patient Outreach [address] [address] Kim Harp MD 08/17/2025 Patient Outreach [address] [address] Kim Harp MD Care Coordination (C3CM/ALAN Brown TC- Follow up call) 08/17/2025 Patient Outreach [address] [address] Kim Harp MD Care Management (C3CM follow up call) 08/16/2025 Patient Outreach [address] [address] Kim Harp MD 08/01/2025 Patient Outreach [address] [address] Kim Harp MD Care Coordination (C3CM/ALAN Brown TC- Follow up call) 07/27/2025 Results Follow-Up [address] [address] Angeles Weston RN Head Neck Soft Tissue 07/23/2025 Orders Only [address] [address] Amita Lei NP Mass in neck (Primary Dx) 07/19/2025 Patient Outreach [address] [address] Kim Harp MD 07/15/2025 11:15 AM EDT Office Visit [address] [address] Amita Lei NP Subcutaneous mass of neck (Primary Dx) 07/15/2025 [place] [address] Kim Harp MD Care Coordination ([facility]/W ESTEFANY Sarah#2- SDOH follow up call-LV) 07/15/2025 Travel 07/13/[address] [address] Kim Harp MD Telephone Call from Last 3 Months Social History Tobacco [...] Mass Index 27.65 10/11/2025 10:54 AM EST Plan of Treatment Health Maintenance Due Date Last Done Comments HIV Screening 1994 Disability Screening 1994 Family Planning (PISQ) 2009 HPV Vaccines (1 - 3-dose series) 2009 Hepatitis C Screening 2012 DTaP/Tdap/Td Vaccines (1 - Tdap) 2013 Hepatitis B Vaccines (1 of 3 - 19+ 3-dose series) 2013 COVID-19 Vaccine ( - 2024-2 6 season) 2025 Influenza Vaccine (#1) 2025 Tobacco Screening 12/17/2025 12/17/2024 Depression Monitoring 01/22/2026 07/25/2025 , 07/25/2025 SDOH Screening 01/27/2026 01/27/2025 Alcohol/Substance Use Screening 05/31/2026 05/31/2025 Pap Smear 02/25/2028 02/24/2025 Cervical Cancer Screening 02/24/2030 HPV/Cotest 02/24/2030 02/24/2025 Zoster Vaccines (1 of 2) 2044 RSV [...] deficiency anemia due to chronic blood loss US HEAD NECK SOFT TISSUE Routine 07/23/2025 9:56 AM EDT PAP/HPV Routine 02/24/2025 from Last 3 Months or Most Recently Relevant to Health Maintenance Results * POCT Hemoglobin (10/11/2025 11:39 AM EST) Hemoglobin 12.0 12.0 - 15.0 QC Media Lot # [id number] Lot# Expiration Date 42,427 Blood 10/11/2025 11:3 9 AM EST us Kim Harp MD POINT OF CARE TEST ENTER/EDIT ORDERABLES Final Result * US Head Neck Soft Tissue (07/23/2025 9:56 AM EDT) Anatomical Region Laterality Modality Head, Neck Ultrasound 07/23/2025 9:56 AM EDT Narrative 07/25/2025 8:50 AM EDT [place] [address] Ultrasound Report Signed Patient: Kristal Mccabe MR#: [id number] : 1995 Acct:[id number] Age/Sex: 29 / F ADM Date: 07/23/25 Loc: .US Attending Dr: Amita Lei NP Ordering Physician: Amita Lei NP Date of Service: 07/23/25 Procedure(s): US soft tiss head and/or neck Accession Number(s): [id number] cc: Amita Lei AS400 PROGRAMMER; Kim Harp Reason for Exam: right side [...] in OV> 07/25/25 0847 DD/ TD/TT: 07/23/2559 Processing Technician: Procedure Note Donotuseinterpreter, Image - 07/25/[address] [address] Ultrasound Report Signed Patient: Kristal Mccabe MR#: [id number] : 1995Acct:[id number] Age/Sex: 29 / FADM Date: 07/23/25 Loc: .US Attending Dr: Amita Lei NP Ordering Physician: Amita Lei NP Date of Service: 07/23/25 Procedure(s): US soft tiss head and/or neck Accession Number(s): [id number] cc: Amita Lei AS400 PROGRAMMER; Kim Harp Reason for Exam: right side [...] 07/25/25 0847 DD/ 0956 TD/TT: 07/23/25 0959 Processing Technician: Amita Lei NP IM US PROCEDURES Edited Result - Final * HM PAP/HPV (02/24/2025) Pap Smear 1. NILM 1. NILM HPV Not Detected Undetected, Indeterminat e, Quantitative , Not Detected Historical Provider HEALTH MAINTENANCE Final Result from Last 3 Months or Most Recently Relevant to Health Maintenance Insurance [employer] Care Teams Freelance Displayer Relationship Specialty Start Date End Date Kim Harp MD [address] [place] [phone] PCP - General Family Medicine 12/17/24
--- OUTSIDE RECORDS SUMMARY | 2025-10-11 17:17 | XMS_ITS | Encounter Summary ---
Author Organization [employer] Address [address] [facility] 7t [place] [address] Care Team Providers Care Cooker Cleaner Name Role Phone Kim Harp MD Primary Care Provider [phone] Reason for Visit * Reason Onset Date Comments Chart Prep 10/10/2025 Encounter Details Date Type Department Care Team ([facility] st Contact Info) Description 10/10/2025 Telephone [facility] [address] [place] [address] Kim Harp MD [address] [place] [address] Chart Prep Social History Tobacco Use Types Packs/Day Years [...] AM EST documented as of this encounter Miscellaneous Notes * Telephone Encounter - Silvia Ventura [place] - 10/10/2025 1:55 PM EST Chart Prep Labs: not applicable Images: done US Neck Report-07/23/25([facility]) Referrals: complete [facility] Vaccines due: Covid, Flu, Tdap, Hep B, and HPV Screenings: LMP, PISQ, and Hep C Screening Overdue care gaps: SBIRT, PHQ-9, RUPERTO-7, and Disability screen documented in this encounter Plan of Treatment Not on file documented as of this encounter Visit Diagnoses Not on filedocumented in this encounter Additional Health Concerns Assessment Noted Time PHQ-9 Depression Total Score: 9 07/25/20 3:41 PM EDT documented as of this encounter Care Teams Cooker Cleaner Relationship Specialty Start Date End Date Kim Harp MD [address] [place] [address] PCP - General Family Medicine 12/17/24 documented as of this encounter
== END 2025-10-11 16:14 | disposition home or self-care (01) ==
LOC: HO.LNP 16:13
PROVIDERS: Visit Provider General Practice
DX: Z20.2 Contact with and (suspected) exposure to infections with a predominantly sexual mode of transmission (principal); N89.8 Other specified noninflammatory disorders of vagina
CPT/HCPCS: 81515; 87491; 87591

== ENCOUNTER 2025-11-08 13:59 | Outpatient (AMB) | payer MEDICAID, SELFPAY ==
--- NOTE | 2025-11-08 14:01 | MHC.OFFVIS ---
Intake Visit Reasons: Excision subcutaneous mass (R) lateral neck Intake Note: Patient is seen for office procedure: Excision right-sided neck mass. Pt c/o: no changes s/p: 11/15/24@2:30p Reference Investigator Required: Yes Reference Investigator Language: Lime Slaker Services: Reference Investigator Present Reference Investigator Name: Mercy Information Interpreted: non-clinical & clinical Accompanied by: Self / Same As Patient Allergies No Known Allergies Allergy (Verified 11/08/25 14:02) Medication List - Last Reconciled 11/08/25 by Ramon Shah MD No Known Home Meds HPI Comments Details: 30-year-old female patient returning today for excision of a mass in the right lateral neck. [facility] Surgical History History of 3 sections Social History Alcohol intake: never Patient Tobacco Use Status: Never used Tobacco Office Procedures Excision Details: Preoperative diagnosis: Mass right lateral neck Postoperative diagnosis: Mass right lateral neck Procedure: Excision of mass right lateral neck Surgeon: Ramon Shah MD Senior Managing Director: None Anesthesia: Lidocaine 1% with epinephrine Indications for procedure: Painful mass in the right lateral neck with the associated fevers Operative findings: Hard, calcified lesion measuring 1.5 cm in the right lateral neck Specimen: Mass right lateral neck Estimated blood loss: Less than 2 mL Complications: None Procedure details: Patient was brought to the procedure room and placed in a supine position with her neck turned to the left. The site of surgery was confirmed by the patient in the right lateral neck. After assuring informed consent the skin was prepped with Betadine and draped in a sterile fashion. Local anesthesia was infiltrated transversely over the lesion. A transverse incision was then made with a scalpel and carried out through subcutaneous tissue up to the mass. Sharp dissection was then used to excise the mass from the surrounding subcutaneous tissue. Hemostasis was assured at all times with light pressure. The lesion was removed and sent to pathology for further examination. Skin was then closed using interrupted 5 0 nylon sutures. Sterile dressings consisting of 2 x 2 gauze and Tegaderm were then applied. The patient tolerated the procedure well. She was discharged to home in stable condition. [id number] scalp/neck/hands/feet/genitalia 1.1cm-2cm Procedure code (CPT) selection complete Assessment & Plan Assessment & Plan (1) Solitary mass of neck with fever: Code(s): R22.1 - Localized swelling, mass and lump, neck; R50.9 - Fever, unspecified Category: Medical Plan The patient underwent excision of this mass of the right lateral neck. She was instructed on local wound care and will return in 1 week for wound examination and suture removal. Orders: Orders Surgical Today R22.1 - Localized swelling, mass and lump, neck, R50.9 - Fever, unspecified Coding Level of Care Code Procedure Only Diagnoses Solitary mass of neck with fever R22.1; R50.9 CPT Codes Scalp/Neck/Hands/Feet/Genetalia - CPT: 90444-[id number] scalp/neck/hands/feet/genitalia 1.1cm-2cm ([id number])
--- OUTSIDE RECORDS SUMMARY | 2025-11-08 17:49 | XMS_ITS ---
Author Organization [employer] Address [address] [place] [address] Care Team Providers Care Novelty Dipper Name Role Phone Kim Harp MD Primary Care Provider [phone] CM Maternal Advocate Status:Enrolled (Active) Start date:01/27/2025 Enrollment date:05/31/2025 Enrollment reason:Risk Strat Case Team Name Relationship Phone Cyndi Brown(Responsible Staff) [phone] Continued Care and Services Coordination
--- OUTSIDE RECORDS SUMMARY | 2025-11-08 17:49 | XMS_ITS | Encounter Summary ---
Author Organization [employer] Address [address] [facility] [address]t [place] [address] Care Team Providers Care Longwall Foreman Name Role Phone Kim Harp MD Primary Care Provider [phone] Reason for Visit * Reason Comments Care Coordination OSORIO/ESTEFANY Salinas-Follow up Encounter Details Date Type Department Care Team (Latest Contact Info) Description 10/21/2025 Patient Outreach [facility] MEDICINE [address] [place] [address] Kim Harp MD [address] [place] [address] Care Coordination (ESTEFANY Mendoza-Follow up) Social History Tobacco Use Types Packs/Day Years [...] with others, in a hotel, in a correction, living outside on the street, on a [...] the past 12 months, has t he [employer], gas, oil or water [employer] threatened to shut off services in your [...] AM EST documented as of this encounter Progress Notes * Cyndi Brown - 10/21/2025 2:19 PM EST CHW Cyndi Brown, placed outbound call to patient's parent introducing herself calling from [facility]. Patient's name, and address confirmed. CHW followed up on SDOH needs. No SDOHneeds at this time. No further questions or concerns. CHW educated parent of [facility] Located in [facility] with extended clinic hours Mondays through 8:00AM-8:00, Fridays 8:30AM-4:30PM, and Saturdays 9AM-1PM as well as patient provided with after-hours line for [facility], , which offernight time triage service and option to transfer to hospital account liaison provider if needed. CHW reinforced direct contact information for any additional questions or concerns. Parent acknowledged understanding and agrees with plan and able to repeat back to commercial underwriter. A follow up call will be placed within 10 days, patient agrees with plan. documented in this encounter Plan of Treatment Upcoming Encounters Date Type Department Care Team (Late st Contact Info) Description 02/16/2026 2:00 PM EDT Office Visit [facility] OPTOMETRY [address] [place] [address] Vika Knapp, OD [address] [place], [place] [phone] documented as of this encounter Visit Diagnoses Not on filedocumented in this encounter Additional Health Concerns Assessment Noted Time PHQ-9 Depression Total Score: 9 07/25/20 3:41 PM EDT documented as of this encounter Care Teams Longwall Foreman Relationship Specialty Start Date End Date Kim Harp MD [address] [place] [address] PCP - General Family Medicine 12/17/24 documented as of this encounter
--- OUTSIDE RECORDS SUMMARY | 2025-11-08 17:49 | XMS_ITS | Clinical Summary ---
Author Organization [employer] Address [address] [facility] [address] [place] [address] Care Team Providers Care Joy Loader Name Role Phone Kim Harp MD Primary Care Provider [phone] Allergies No known active allergies Medications * This document contains information received from the source organization and may not represent a complete record from that organization. Pyridoxine HCl 10 MG tabletIndicat ions:Positive test Take 1 tablet (10 mg) by mouth every 6 (six) hours if needed (nausea). 90 tablet 1 11/08/20 24 Active Additional Information Patient not taking.Reported on 05/31/2025 Vit-Fe Iww-FR-Jaymj (PNV Plus Multivit+DHA) 27-1 & 312 MG [...] BEDTIME FOR 7 DAYS 06/17/20 25 Active senna (Senokot) 8.6 MG tablet Take 1 tablet (8.6 mg) by mouth at bedtime. 90 tablet 3 5 2:20 PM EST 10/11/20 25 Active Ferrous Fumarate 324 (106 Fe) MG tablet Take 1 tablet by mouth Once per day. 90 tablet 3 5 2:20 PM EST 10/11/20 25 Active 27-1 MG tablet Take 1 tablet by mouth Once per day. 12/17/19 Active Acetaminophen Extra Strength 500 MG tablet TAKE 1 TABLET BY MOUTH EVERY 6 HOURS NEEDED FOR MILD PAIN OR HEADACHE 12/17/19 Active hydrocortison e (Anusol-HC) 2.5 % rectal creamIndicati ons:Bright red blood per rectum Insert into the rectum 2 times daily. 28 g 2 10/12/20 Active metroNIDAZOLE (Metrogel) 0.75 % vaginal gel INSERT 1 APPLICATORFUL VAGINALLY AT BEDTIME 70 g 3:25 PM EST 10/12/20 Active acetaminophen 500 MG capsule Take 1 capsule (500 mg) by mouth every 6 (six) hours if needed for mild pain or headaches. 60 capsule 1 12/17/19 25 2024 Discontinued(T herapy completed) Ferrous Fumarate 324 (106 Fe) MG tablet THADDEUS 1 TABLETA POR LA BOCA CADA LISSETTE. 02/29/20 25 2024 Discontinued(R eorder (will not trigger notification to Pharmacy)) oxyCODONE (Roxicodone) 5 MG immediate release tablet Take 1 tablet by mouth every 6 (six) hours if needed for pain. 06/17/20 25 2024 Discontinued(T herapy completed) senna (Senokot) 8.6 MG tablet TAKE 2 TABLETS BY MOUTH AT BEDTIME FOR 7 DAYS NEEDED FOR CONSTIPATION 06/17/20 25 2024 Discontinued(R eorder (will not trigger notification to Pharmacy)) acetaminophen (Tylenol) 325 MG tablet TAKE 3 TABLETS BY MOUTH EVERY 6 HOURS NEEDED FOR PAIN 07/08/202024 Discontinued(T herapy completed) metroNIDAZOLE (Flagyl) 500 MG tabletIndicat ions:Vaginal discharge Take 1 tablet (500 mg) by mouth 2 times daily for 7 days. 14 tablet 10/12/20 25 2024 Discontinued(S jame effects) metroNIDAZOLE 1.3 % gel Insert 1 Application into the vagina at bedtime. 50 g 10/12/20 25 2024 Discontinued Active Problems Problem Noted Date Diagnosed Date [...] organization. Date Type Department Care Team Description 10/21/2025 Patient Outreach [address] [address] Kim Harp MD Care Coordination (Amina/ESTEFANY Macdonald-Follow up) 10/21/2025 Travel 10/13/2025 Patient Outreach [address] [address] Kim Harp MD Care Management ([facility] TC #1-lvm) 10/12/[address] [address] Kim Harp MD 10/11/2025 11:00 AM EST Office Visit [address] [address] Kim Harp MD Iron deficiency anemia due to chronic blood loss (Primary Dx); Dietary counseling; Exercise counseling; Blurry vision; Vaginal discharge; Bright red blood per rectum 10/11/2025 Travel 10/10/[address] [address] Kim Harp MD Chart Prep 10/05/2025 Patient Outreach [address] [address] Kim Harp MD Care Coordination (OSORIO/ESTEFANY Macdonald- Follow up) 09/16/2025 Patient Outreach [address] [address] Kim Harp MD Care Coordination (OSORIO/ESTEFANY Macdonald-Care Coordination/Assistan ce with CAR INSPECTOR appt) 09/16/2025 Patient Outreach [address] [address] Kim Harp MD Care Management (C3CM follow up call) 09/13/2025 Patient Outreach [address] [address] Kim Harp MD Care Coordination (C3/Alma Brown TC#1- Follow up-LVM) 09/01/2025 Patient Outreach [address] [address] Kim Harp MD Care Coordination (C3/ESTEFANY Macdonald- Follow up call) 08/25/2025 Patient Outreach [address] [address] Kim Harp MD 08/17/2025 Patient Outreach [address] [address] Kim Harp MD Care Coordination (C3/ESTEFANY Strange- Follow up call) 08/17/2025 Patient Outreach [address] [address] Kim Harp MD Care Management (C3 follow up call) 08/16/2025 Patient Outreach [address] [address] Kim Harp MD from Last 3 Months Social History Tobacco [...] with others, in a hotel, in a prison, living outside on the street, on a [...] 10/11/2025 10:54 AM EST Plan of Treatment Upcoming Encounters Date Type Department Care Team (Late st Contact Info) Description 02/16/2026 2:00 PM EDT Office Visit [facility] OPTOMETRY [address] [place], [place] [phone] Vika Knapp, OD [address] [place] [address] Health Maintenance Due Date Last Done Comments HIV Screening 1994 Disability Screening 1994 Family Planning (PISQ) 2009 HPV Vaccines (1 - 3-dose series) 2009 Hepatitis C Screening 2012 DTaP/Tdap/Td Vaccines (1 - Tdap) 2013 Hepatitis B Vaccines (1 of 3 - 19+ 3-dose series) 2013 COVID-19 Vaccine (1 - 2024-2 6 season) 2025 Influenza Vaccine (#1) 2025 Depression Monitoring 01/22/2026 07/25/2025 , 07/25/2025 SDOH Screening 01/27/2026 01/27/2025 Alcohol/Substance Use Screening 05/31/2026 05/31/2025 Tobacco Screening 10/12/2026 10/12/2025 Pap Smear 02/25/2028 02/24/2025 Cervical Cancer Screening [...] deficiency anemia due to chronic blood loss BACTERIAL VAGINOSIS PANEL Routine 10/11/2025 12:00 AM EST Vaginal discharge CHLAMYDIA/N. GONORRHOEAE RNA, TMA, UROGENITAL Routine 10/11/2025 12:00 AM EST Vaginal discharge HM PAP/HPV Routine 02/24/2025 from Last 3 Months or Most Recently Relevant to Health Maintenance Results * POCT Hemoglobin (10/11/2025 11:39 AM EST) Hemoglobin 12.0 12.0 - 15.0 QC Media Lot # [id number] Lot# Expiration Date 42 Blood 10/11/2025 11:3 9 AM EST Kim Harp MD POINT OF CARE TEST ENTER/EDIT ORDERABLES Final Result * (ABNORMAL) Bacterial Vaginosis Panel (10/11/2025 12:00 AM EST) TRICHOMONAS VAGINALIS DETECTION BY PCR NOT DETECTED Not Detect [facility] BACTERIAL VAGINOSIS DETECTION BY PCR POSITIVE(A) Negative [facility] Comment:The BV organism targ ets of the Xpert Xpress MVP test can becommensal in women; Xpert Xpress MVP positive results forbacterial vaginosis should be considered in conjunction withother clinical and patient information to determine thedisease status. Organisms that are not detected by the XpertXpress MVP test have also been reported to be associatedwith BV and aerobic vaginitis.The Xpert Xpress MVP test performance has not been evaluatedin patients under the age of 14. MADHAVI GROUP DETECTION BY PCR NOT DETECTED Not Detect [facility] Madhavi glab krusei PCR NOT DETECTED Not Detect [facility] Swab Vaginal structure / Unknown 10/11/2025 10/11/2025 Kim Harp MD LAB MICROBIOLOGY - GENERAL ORD ERABLES Final Result [facility] [address] [place] [address] [phone] * Chlamydia/N. Gonorrhoeae RNA, TMA, Vaginal (10/11/2025 12:00 AM EST) CT PCR NOT DETECTED Not Detect. [facility] Comment:A not detected test result does not exclude the possibilityof infection because test results can be affected byimproper specimen collection, concurrent antibiotic therapy,or the number of organisms in the specimen which may bebelow the sensitivity of the test. As with many diagnostictests, results from the Xpert CT/NG assay should beinterpreted in conjunction with other laboratory andclinical data available to the clinician.Xpert CT/NG performance has not been evaluated in patientsless than 14 years of age. The assay should not be used forthe evaluationof suspected sexual abuse or for other medico-legalindications. Additional testing is recommended in anycircumstance when false positive or false negative resultscould lead to adverse medical, social or psychologicalconsequences. NG PCR NOT DETECTED Not Detect. [facility] Comment:A not detected test result does not exclude the possibilityof infection because test results can be affected byimproper specimen collection, concurrent antibiotic therapy,or the number of organisms in the specimen which may bebelow the sensitivity of the test. As with many diagnostictests, results from the Xpert CT/NG assay should beinterpreted in conjunction with other laboratory andclinical data available to the clinician.Xpert CT/NG performance has not been evaluated in patientsless than 14 years of age. The assay should not be used forthe evaluationof suspected sexual abuse or for other medico-legalindications. Additional testing is recommended in anycircumstance when false positive or false negative resultscould lead to adverse medical, social or psychologicalconsequences. Swab Vaginal structure / Unknown 10/11/2025 10/11/2025 us Kim Harp MD LAB MICROBIOLOGY - GENERAL ORD ERABLES Final Result [facility] [address] [place] [address] [phone] * PAP/HPV (02/24/2025) Pap Smear 1. NILM 1. NILM HPV Not Detected Undetected, Indeterminat e, Quantitative , Not Detected us Historical Provider HEALTH MAINTENANCE Final Result from Last 3 Months or Most Recently Relevant to Health Maintenance Insurance [facility] STAND[facility] Care Teams Joy Loader Relationship Specialty Start Date End Date Kim Harp MD [address] [place] [id number] PCP - General Family Medicine 12/17/24
--- OUTSIDE RECORDS SUMMARY | 2025-11-08 17:49 | XMS_ITS ---
Author Organization [employer] Address [address] [facility] [address] [place] [address] Care Team Providers Care Fusing Line Inspector Name Role Phone Kim Harp MD Primary Care Provider [phone] CM High Risk Maternity Status:Enrolled (Active) Start date:01/27/2025 Enrollment date:05/31/2025 Enrollment reason:Risk Strat Overview HRM- Risk Strat Case Team Name Relationship Phone Eda Alvarez(Responsible Staff) Registered Nurse [phone] Continued Care and Services Coordination
== END 2025-11-08 14:26 | disposition home or self-care (01) ==
LOC: HO.HGS 13:59
PROVIDERS: PCP General Practice; Visit Provider Surgery
DX: R22.1 Localized swelling, mass and lump, neck (principal); R50.9 Fever, unspecified
CPT/HCPCS: 11422

== ENCOUNTER 2025-11-08 13:59 | Outpatient (REF) | payer MEDICAID, SELFPAY | END 2025-11-08 14:00 | disposition home or self-care (01) | LOC: HO.LNP 13:59 | PROVIDERS: PCP General Practice; Visit Provider Surgery | DX: R22.1 Localized swelling, mass and lump, neck (principal); R50.9 Fever, unspecified | CPT/HCPCS: 11422; 88304 ==